=== PATIENT | female | born 1995 | race Caucasian/White ===

== ENCOUNTER 2021-11-02 09:13 | Inpatient (IN) | payer MEDICAID ==
[~2021-11-02] VITALS: Ht 160 cm; Wt 87.1 kg
[2021-11-02] MEDS ORDERED: OXYTOCIN/0.9 % SODIUM CHLORIDE 1,000 ML IV SCH ×2 (11:00→23:30)
[2021-11-02] MEDS ORDERED: NALBUPHINE HCL 10 MG/ML AMP IVP PRN (11:00)
[2021-11-02] MEDS ORDERED: TERBUTALINE SULFATE 1 MG/ML VIAL SUBCUT ONE (11:00)
[2021-11-02] MEDS ORDERED: LR 1,000 ML IV SCH (11:00)
[2021-11-02] MEDS ORDERED: NALBUPHINE HCL 10 MG/ML AMP IM PRN (11:00)
[2021-11-02 11:39] LABS: BASOPHILS % (AUTO) 0.1 % (0.0-2.0); EOSINOPHILS % (AUTO) 0.5 % (0.0-4.0); HEMATOCRIT 31.3 % (36-48); HEMOGLOBIN 10.6 g/dL (12.0-16.0); LYMPHOCYTES % (AUTO) 25.7 % (20.5-51.5); MEAN CORPUSCULAR HEMOGLOBIN 30 pg (27-31); MEAN CORPUSCULAR HGB CONC 34 % (32-36); MEAN CORPUSCULAR VOLUME 89 fL (79.0-98.0); MONOCYTES # (AUTO) 0.4 K/uL (0.0-1.0); MONOCYTES % (AUTO) 5.8 % (1.7-9.3); NEUTROPHILS # (AUTO) 5.3 K/uL (1.8-7.7); NEUTROPHILS % (AUTO) 67.9 % (40.0-70.0); PLATELET COUNT (AUTO) 200 K/uL (130-430); RED BLOOD CELL COUNT(AUTO) 3.53 MIL/uL (4.2-6.2); RED CELL DISTRIBUTION WIDTH 13.6 % (9.0-15.0); WHITE BLOOD COUNT (AUTO) 7.7 K/uL (4.8-10.8)
[2021-11-02 12:33] VITALS: BP_SYST 108
[2021-11-02] MEDS ORDERED: cefTRIAXone 1 GM in D5W 50 ML IV ONE (14:00)
[2021-11-02] MEDS ORDERED: fentaNYL CITRATE/PF 100 MCG/2 ML AMP ONE (15:18)
[2021-11-02] MEDS ORDERED: ROPIVACAINE HCL/PF 0.2% 200 ML ONE (15:18)
[2021-11-02] MEDS ORDERED: ONDANSETRON HCL 4 MG/2 ML VIAL IVP PRN (16:30)
[2021-11-02] MEDS ORDERED: FENT2mCg/mL-ROPIVA0.2%/NS EPID 200 ML EP SCH (16:30)
[2021-11-02] MEDS ORDERED: ePHEDrine sulfate 50 MG/ML VIAL IVP ONE (16:30)
[2021-11-02] MEDS ORDERED: NALOXONE HCL 0.4 MG/ML AMP (NARCAN) IVP PRN (16:30)
[2021-11-02] MEDS ORDERED: DIPHENHYDRAMINE INJ 50 MG/ML VIAL IVP PRN (16:30)
[2021-11-02] MEDS ORDERED: LIGHT MINERAL OIL 10 ML VIAL MC ONE (20:34)
[2021-11-02] MEDS ORDERED: LIDOCAINE PF 1% 30ML(POUR BTL) INJ ONE (20:35)
[2021-11-02] MEDS ORDERED: NALOXONE HCL 0.4 MG/ML AMP (NARCAN) ONE (20:35)
[2021-11-02] MEDS ORDERED: DIPHTH,PERTUSS(ACELL),TET VAC 0.5 ML VIAL (Tdap) I.M. PRN (23:30)
[2021-11-02] MEDS ORDERED: WITCH HAZEL LEAF 1 MED.PAD MED.PAD TP PRN (23:30)
[2021-11-02] MEDS ORDERED: MEASLES,MUMPS&RUBELLA VACC/PF 12500 UNIT/0.5 ML VIAL SUBQ PRN (23:30)
[2021-11-02] MEDS ORDERED: OXYCODONE/ACETAMINOPHEN 5-325 TABLET PO PRN (23:30)
[2021-11-02] MEDS ORDERED: HYDROCORTISONE 0.5% CREAM 28.4 GM CREAM.GM. TP PRN (23:30)
[2021-11-02] MEDS ORDERED: DERMOPLAST SPRAY TP PRN (23:30)
[2021-11-02] MEDS ORDERED: OXYTOCIN/0.9 % SODIUM CHLORIDE 1,000 ML IV ONE (23:30)
[2021-11-02] MEDS ORDERED: LANOLIN 7 GM OINT. TP PRN (23:30)
[2021-11-02] MEDS ORDERED: TEMAZEPAM 15 MG CAPSULE PO PRN (23:30)
[2021-11-02] MEDS ORDERED: ANUSOL 1 EA SUPP.RECT (PREPARATION H) RC PRN (23:30)
[2021-11-02] MEDS ORDERED: RHO(D) IMMUNE GLOBULIN/MALTOSE 1500 UNITS/1.3 ML (WINHRO) IM PRN (23:30)
[2021-11-03] MEDS: IBUPROFEN 600 MG TABLET PO SCH ×4 (00:27→18:06)
[2021-11-03] MEDS: DOCUSATE SODIUM 100 MG CAPSULE PO SCH (07:56)
[2021-11-03] MEDS ORDERED: HYDROcodone/ACETAMIN 5-325 MG TAB (NORCO/ VICODIN) PO PRN (11:30)
[2021-11-03] MEDS ORDERED: OXYCODONE/ACETAMINOPHEN 5-325 TABLET PO PRN (11:30)
[2021-11-03 15:05] LABS: HEMATOCRIT 32.3 % (36-48); HEMOGLOBIN 10.7 g/dL (12.0-16.0)
[2021-11-03] MEDS ORDERED: SENNOSIDES/DOCUSATE SODIUM 1 TAB TABLET(SENOKOT-S) PO SCH (21:00)
[2021-11-04] MEDS: IBUPROFEN 600 MG TABLET PO SCH ×3 (00:12→13:52)
[2021-11-04] MEDS: DOCUSATE SODIUM 100 MG CAPSULE PO SCH (09:04)
[2021-11-05 19:06] LABS: FTA-Ab (T PALLIDUM) Non Reactive (Non Reactive)
== END 2021-11-04 14:15 | disposition home or self-care (01) | DRG 560 ==
LOC: SPU 09:18
PROVIDERS: ADMIT Obstetrics & Gynecology; ATTEND Obstetrics & Gynecology
PROC: 10E0XZZ Delivery of Products of Conception, External Approach (ICD-10-PCS; principal; 2021-11-04)
PROC: 3E0234Z Introduction of Serum, Toxoid and Vaccine into Muscle, Percutaneous Approach (ICD-10-PCS; 2021-11-04)
PROC: 3E033VJ Introduction of Other Hormone into Peripheral Vein, Percutaneous Approach (ICD-10-PCS; 2021-11-04)
DX: O24.429 Gestational diabetes mellitus in childbirth, unspecified control (principal); Z37.0 Single live birth; D50.9 Iron deficiency anemia, unspecified; Z20.822 Contact with and (suspected) exposure to COVID-19; O99.214 Obesity complicating childbirth; O99.02 Anemia complicating childbirth; Z3A.39 39 weeks gestation of pregnancy; Z83.3 Family history of diabetes mellitus; Z90.49 Acquired absence of other specified parts of digestive tract; O69.81X0 Labor and delivery complicated by cord around neck, without compression, not applicable or unspecified
CPT/HCPCS: 36415; 81002; 82947; 82962; 85018; 85025; 86592; 86780; 86886; 86900; 86901; 90715; 94760; J0696; J2001; J2310; J2590; J3010; J7060